=== PATIENT | female | born 1995 | race Caucasian/White ===

== ENCOUNTER 2024-04-24 13:12 | Outpatient (CLI) | payer OTHER, SELFPAY ==
--- NOTE | ~2024-04-24 | US_ITS ---
US breast RT limited 04/24/2024 13:38 Indication: Palpable right breast abnormality Procedure: High-resolution Limited ultrasound of the right breast Comparison: No prior studies for comparison. Findings: In the area of palpable concern in the right breast at 4-5:00, 12 cm from the nipple there is a subcutaneous fluid collection with possible subcutaneous tract. This fluid collection measures 1 1 x 10 x 2 mm. Impression: 1: Subcutaneous fluid collection measuring 11 x 10 x 2 mm with possible tract to the skin surface, mo st likely infectious/inflammatory. Recommend follow-up clinical management with repeat ultrasound in 3 months following appropriate therapy. BI-RADS CATEGORY 3-PROBABLY BENIGN FINDING RECOMMENDATION: 3 month follow-up Limited right breast ultrasound Reviewed, dictated and finalized at location B. Impression: 1: Subcutaneous fluid collection measuring 11 x 10 x 2 mm with possible tract t o the skin surface, most likely infectious/inflammatory. Recommend follow-up cl inical management with repeat ultrasound in 3 months following appropriate ther apy. BI-RADS CATEGORY 3-PROBABLY BENIGN FINDING RECOMMENDATION: 3 month follow-up Limited right breast ultrasound
== END 2024-04-24 13:13 ==
PROVIDERS: PCP Obstetrics & Gynecology; Visit Provider Obstetrics & Gynecology
DX: N63.10 Unspecified lump in the right breast, unspecified quadrant (principal)
CPT/HCPCS: 76642

== ENCOUNTER 2024-06-12 13:20 | Outpatient (NON) | payer OTHER, SELFPAY | END 2024-06-12 13:21 | disposition home or self-care (01) | LOC: ANHLAB 13:22 | PROVIDERS: PCP Obstetrics & Gynecology; Visit Provider Surgery | DX: N60.01 Solitary cyst of right breast (principal) | CPT/HCPCS: 88305 ==